=== PATIENT | female | born 1965 | race Caucasian/White ===

== ENCOUNTER 2019-11-28 17:02 | Emergency (ER) | payer MEDICARE, MEDICAID ==
[~2019-11-28] VITALS: Ht 165.1 cm; Wt 94.9 kg
[~2019-11-28 17:02] MED LIST: ADVAIR 250/28 DISKU1 IH; AMBIEN 10MG10 MG PO; ATIVAN0.5 MG PO; DESYREL 50MG50 MG PO; DEXILANT60 MG PO; DURAGESIC25 MCG/PAT TD; INDERAL 10MG10 MG PO; KLOR-CON/2525 MEQ PO; LASIX40 MG PO; LEVAQUIN 750MG750 M1 PO; LIORESAL 1010 MG/TAB PO; NORCO 325 MG-101 TAB PO; OXYCODONE HCL E10 MG PO; PERCOCET 325 MG1 TA2 PO; PERCOCET 325 MG1 TA5 PO; PHENERGAN 25 TA25 MG; PHENERGAN25 M3 PO; POTASSIUM CH2 MEQ/ML PO; PROAMATINE 5MG T5 MG PO; REGLAN10 M1 PO; RELION VEN0.09 MG/Ac IH; REQUIP3 MG PO; TOPAMAX 100MG100 M1 PO; ZANAFLEX4 MG PO; ZOFRAN ODT4 MG PO; ZOFRAN ODT8 M1 PO; ZOLOFT 100MG100 MG PO
[2019-11-28 18:18] LABS: EOS # 0.1 (0.04-0.40); EOS % 2.4 % (1.0-5.0); HEMATOCRIT 38.1 % (37.0-47.0); HEMOGLOBIN 12.5 g/dL (12.5-16.0); LYMPH# 2.3 (1.50-4.00); MEAN CELL VOLUME 83 fl (78-100); MEAN CORPUSCULAR HEMOGLOBIN 27 pg (27-31); MEAN CORPUSCULAR HGB CONC 33 g/dL (33-37); MEAN PLATELET VOLUME 9.2 fl (7.4-10.4); MONO # 0.6 (0.20-0.80); NEU # 2.7 (1.40-6.50); PLATELET COUNT 182 K/mm3 (130-400); RED BLOOD COUNT 4.62 M/mm3 (4.10-5.30); RED CELL DISTRIBUTION WIDTH 13.3 % (11.5-14.5); WHITE BLOOD COUNT 5.8 K/mm3 (4.8-10.8)
[2019-11-28 18:27] LABS: ALBUMIN 4.3 g/dL (3.5-5.0); POTASSIUM 3.3 mmol/L (3.5-5.1)
[2019-11-28 18:28] LABS: CALCIUM 8.8 mg/dL (8.3-10.5)
[2019-11-28 18:29] LABS: TOTAL PROTEIN 6.7 g/dL (6.4-8.3)
[2019-11-28 18:31] LABS: TOTAL BILIRUBIN 0.5 mg/dL (0.2-1.2)
[2019-11-28 21:00] VITALS: BP 111/66
== END 2019-11-28 21:00 | disposition home or self-care (01) ==
LOC: ED 17:02
PROVIDERS: Family Medicine
DX: K31.84 Gastroparesis (principal); G90.3 Multi-system degeneration of the autonomic nervous system; F32.9 Major depressive disorder, single episode, unspecified; Z90.49 Acquired absence of other specified parts of digestive tract; Z90.710 Acquired absence of both cervix and uterus; Z90.89 Acquired absence of other organs; Z79.891 Long term (current) use of opiate analgesic
CPT/HCPCS: J1644; J2270; J2550; J3480

== ENCOUNTER → 2020-12-22 | Outpatient (CLI) | payer MEDICARE, MEDICAID | LOC: VAS 07:58 → RAD 08:45 | DX: M79.89 Other specified soft tissue disorders (principal); R79.89 Other specified abnormal findings of blood chemistry ==